=== PATIENT | female | born 1980 | race African-American/Black ===

== ENCOUNTER 2016-05-02 14:30 | Emergency (ER) | payer SELFPAY ==
[2016-05-03] MEDS ORDERED: LISD40CA PO (07:25)
[2016-05-03] MEDS ORDERED: METR500T PO (08:23)
== END 2016-05-02 15:05 | disposition left against medical advice (07) ==
LOC: ER 14:30
DX: Z11.3 Encounter for screening for infections with a predominantly sexual mode of transmission (principal); Z53.21 Procedure and treatment not carried out due to patient leaving prior to being seen by health care provider

== ENCOUNTER 2016-05-03 06:33 | Emergency (ER) | payer OTHER ==
[~2016-05-03] VITALS: Ht 172.7 cm; Wt 117.9 kg
--- NOTE | 2016-05-03 07:17 | PHYS DOC ---
Adult General Chief Complaint Chief Complaint: SEXUALLY TRANSMITTED DISEASE HPI HPI Patient is a 35 year old female who presents with complaint of possible sexually transmitted infection exposure. Patient states that her was seen in the emergency department 2 days ago due to dysuria and was treated for sexually transmitted infection. He advised that the patient come to the emergency department for evaluation and treatment. The patient states that she has had history of bacterial vaginitis which she gets commonly and states that she has had irritation almost constantly. Patient states however that she has noticed worsening abnormal discharge over the past 2 days. Patient has not had any fevers and denies any abdominal or pelvic pain. Patient denies dysuria. The patient came to the emergency department for evaluation and possible treatment. Review of Systems Review of Systems Constitutional: Denies fever or chills [] Eyes: Denies change in visual acuity, redness, or eye pain [] HENT: Denies nasal congestion or sore throat [] Respiratory: Denies cough or shortness of breath [] Cardiovascular: Denies chest pain or edema [] GI: Denies abdominal pain, nausea, vomiting, bloody stools or diarrhea [] : Vaginal discharge, denies vaginal bleeding [] Musculoskeletal: Denies back pain or joint pain [] Integument: Denies rash or skin lesions [] Neurologic: Denies headache, focal weakness or sensory changes [] Endocrine: Denies polyuria or polydipsia [] Family History Family History Noncontributory Allergies Allergies Allergies Coded Allergies Type Severity Reaction Last Updated Verified No Known Drug Allergies 05/03/16 No Physical Exam Physical Exam Constitutional: Alert, afebrile, no acute distress [] HENT: Normocephalic, atraumatic, bilateral external ears normal, oropharynx moist, no oral exudates, nose normal. [] Eyes: PERRLA, EOMI, conjunctiva normal, no discharge. [] Neck: Normal range of motion, no tenderness, supple, no stridor. [] Cardiovascular:Heart rate regular rhythm, no murmur [] Lungs & Thorax: Bilateral breath sounds clear to auscultation [] Abdomen: Bowel sounds normal, soft, no tenderness, no masses, no pulsatile masses. Pelvic: Normal external exam, no vaginal bleeding or abnormal discharge present , no cervical motion tenderness, no midline or bilateral adnexal tenderness on bimanual exam. [] Skin: Warm, dry, no erythema, no rash. [] Extremities: No tenderness, no cyanosis, no clubbing, ROM intact, no edema. [] Neurologic: Alert and oriented X 3, normal motor function, normal sensory function, no focal deficits noted. [] Current Patient Data Vital Signs Vital Signs Date Time Temp Pulse Resp B/P Pulse Ox O2 Delivery O2 Flow Rate FiO2 05/03/16 06:55 98.0 98 20 98 Room Air 98.0 Lab Values Laboratory Tests Test 05/03/16 06:46 Urine Collection Type Unknown Urine Color Yellow Urine Clarity Clear Urine pH 6.0 Urine Specific [place] 1.025 Urine Protein Negativemg/dL (NEG-TRACE) Urine Glucose (UA) Negativemg/dL (NEG) Urine Ketones (Stick) Negativemg/dL (NEG) Urine Blood Negative (NEG) Urine Nitrite Negative (NEG) Urine Bilirubin Negative (NEG) Urine Urobilinogen Dipstick 1.0mg/dL (0.2 mg/dL) Urine Leukocyte Esterase Trace (NEG) Urine RBC Occ/HPF (0-2) Urine WBC Occ/HPF (0-4) Urine Squamous Epithelial Cells Mod/LPF Urine Bacteria Few/HPF (0-FEW) Urine Mucus Mod/LPF Urine Test Negative (NEG) Microbiology 05/03/16 Wet Prep - Final, Complete Microbiology 05/03/16 Wet Prep - Final, Complete EKG EKG Not performed [] Radiology/Procedures Radiology/Procedures Not performed [] Course & Med Decision Making Course & Med Decision Making Pertinent Labs and Imaging studies reviewed. (See chart for details) The patient's wet prep showed altered Chantelle suggestive of bacterial vaginosis but no clue cells. Patient does state that she is having vaginal irritation consistent with previous episodes of bacterial vaginosis. The patient will be started on oral Flagyl. The patient otherwise does not show any signs at this time of sexually transmitted infection. Recommended that treatment would not be given unless cultures result with a positive for gonorrhea or chlamydia. Patient voiced agreement. The patient was recommended to follow-up in the next 5 days with her [facility] and return to emergency department for any worsening symptoms. Patient was understanding and in agreement with treatment plan. Dragon Disclaimer Dragon Disclaimer This electronic medical record was generated, in whole or in part, using a voice recognition dictation system. Departure Departure Impression: Primary Impression: Bacterial vaginosis Disposition: 01 HOME, SELF-CARE Condition: IMPROVED Referrals: NO PCP (PCP) Patient Instructions: Bacterial Vaginosis Additional Instructions: Follow-up with your OB doctor in 4-5 days of symptoms have not improved. You will receive a phone call if you have a positive result on your gonorrhea and chlamydia cultures. This usually takes 3-4 days from your visit. Return to the emergency department if you develop any worsening symptoms including pelvic pain , fever, heavy abnormal discharge, or any other worrisome symptoms. Scripts Metronidazole (Flagyl)500 Mg Tablet1 Tab PO BID #[id number] TAB Prov:JOBY BAUM MD 05/03/16 JOBY BAUM MD May 03, 2016 07:17
[2016-05-03 07:22] LABS: NEG OBC UR NEG; POS OBC UR POS
[2016-05-03] MEDS ORDERED: LISD40CA PO (07:25)
[2016-05-03 07:27] LABS: BILIRUBIN,URINE NEGATIVE (NEG); GLUCOSE,URINE NEGATIVE (NEG); NITRITE,URINE NEGATIVE (NEG); PROTEIN,URINE NEGATIVE (NEG-TRACE)
[2016-05-03 07:34] LABS: BACTERIA,URINE FEW /HPF (0-FEW); RBC,URINE OCC /HPF (0-2); SQUAMOUS EPITHELIAL CELL,UR MOD /LPF; WBC,URINE OCC /HPF (0-4)
[2016-05-03] MEDS ORDERED: METR500T PO (08:23)
[2016-05-03 08:30] VITALS: BP 134/76
== END 2016-05-03 08:31 | disposition home or self-care (01) ==
LOC: ER 06:33
DX: N76.0 Acute vaginitis (principal)
CPT/HCPCS: 81001; 81025; 87086; 99284; Q0111